=== PATIENT | female | born 1985 | race Caucasian/White ===

== ENCOUNTER 2021-06-03 17:21 | Inpatient (IN) | payer BC ==
[2021-06-03 18:16] VITALS: BMI 33.7
[2021-06-03 20:14] LABS: SARS-CoV-2 NAA Rapid Test Not Detected (NotDetected)
[2021-06-03] MEDS ORDERED: Carboprost 250 MCG/ML AMP IM PRN (20:26)
[2021-06-03] MEDS ORDERED: hydrALAZINE 20 MG/ML VIAL SLOW IVP PRN (20:26)
[2021-06-03] MEDS ORDERED: Promethazine HCl 25 MG/ML VIAL IM PRN ×2 (20:26→21:42)
[2021-06-03] MEDS ORDERED: guaiFENesin/Dextromethorphan 10 ML UDCUP PO PRN (20:26)
[2021-06-03] MEDS ORDERED: Ibuprofen 800 MG TAB PO PRN (20:26)
[2021-06-03] MEDS ORDERED: Pseudoephedrine HCl 30 MG TAB PO PRN (20:26)
[2021-06-03] MEDS ORDERED: Lidocaine 1% (PF) 30 ML VIAL SC PRN (20:26)
[2021-06-03] MEDS ORDERED: Misoprostol 200 MCG TAB PR PRN (20:26)
[2021-06-03] MEDS ORDERED: Methylergonovine 0.2 MG/ML VIAL IM PRN (20:26)
[2021-06-03] MEDS ORDERED: Ondansetron PF 4 MG/2 ML Vial IVP PRN ×2 (20:26→21:42)
[2021-06-03] MEDS ORDERED: Diphenoxylate HCl/Atropine Tablet PO PRN ×2 (20:26)
[2021-06-03] MEDS ORDERED: Lactated Ringer's 1,000 ML IV SCH (20:30)
[2021-06-03] MEDS ORDERED: NS w/ Oxytocin 30 units 500 ML IVPB SCH (20:30)
[2021-06-03] MEDS ORDERED: NS w/ Oxytocin 30 units 500 ML IV SCH ×2 (20:30)
[2021-06-03] MEDS ORDERED: Penicillin G Potassium 5 MILL.UNITS in Sodium Chloride 0.9% 100 ML IVPB SCH (20:30)
[2021-06-03] MEDS ORDERED: Fentanyl 2 mcg/Bup 0.1% Cadd 100 ML ONE (21:08)
[2021-06-03 21:12] LABS: Hemoglobin 10.1 g/dL (12.0-15.5); Mean Corpuscular HGB CONC 33.7 g/dL (32.0-36.0); Mean Corpuscular Hemoglobin 30.4 pg (27.0-33.0); Mean Corpuscular Volume 90.4 fl (81.6-98.3); Platelet Count 265 10x3/uL (150-450); RBC Distribution Width 13.8 % (11.5-14.5); Red Blood Cell (RBC) Count 3.32 10x6/uL (3.90-5.03); White Blood Cell (WBC) Count 7.8 10x3/uL (3.5-10.5)
[2021-06-03] MEDS ORDERED: Acetaminophen 500 MG TAB PO SCH (21:30)
[2021-06-03] MEDS ORDERED: Hydrocerin (Eucerin) Cream 120 gm Jar TOP PRN (21:42)
[2021-06-03] MEDS ORDERED: Lactated Ringer's 500 ML IV PRN (21:42)
[2021-06-03] MEDS ORDERED: ePHEDrine Sulfate 50 MG/10 ML VIAL SLOW IVP PRN (21:42)
[2021-06-03] MEDS ORDERED: Acetaminophen 325 MG TAB PO PRN (21:42)
[2021-06-03] MEDS ORDERED: Naloxone HCl 0.4 mg/ml Vial IVP PRN ×2 (21:42)
[2021-06-03] MEDS ORDERED: diphenhydrAMINE 50 MG/ML VIAL IVP PRN (21:42)
[2021-06-03] MEDS ORDERED: Fentanyl 2 mcg/Bupivacaine 0.1% Cassette 100 ML EPIDURAL SCH (21:45)
[2021-06-03] MEDS ORDERED: Communication Order-Pharmacy FS SCH (21:45)
[2021-06-03 21:48] LABS: HIV (1/2) Antibody/Antigen Non-Reactive (NonReactive); HIV 1/2 INDEX 0.06 S/CO (<1.00); Hep B Surf Ag Non-Reactive S/CO (NonReactive)
[2021-06-03 21:51] LABS: HBSAg Index 0.23 S/CO (0-0.99); Syphilis Antibody Nonreactive (Nonreactive); Syphilis Antibody Index 0.03 S/CO (<1.00 Non-Reactive)
[2021-06-03] MEDS: Guaifenesin DM 100-10/5 ML UDCUP PO PRN (21:54)
[2021-06-03] MEDS ORDERED: PHENYLEPHRINE-NS 100 MCG/ML 10 ML SYRINGE ONE (22:27)
[2021-06-03] MEDS ORDERED: Phenylephrine 10 MG/ML VIAL ONE (23:05)
[2021-06-04] MEDS: Penicillin G 2.5 MILL.units 2.5 MILL.UNITS in Premix Bag 1 BAG IVPB SCH ×4 (01:14→13:14)
[2021-06-04] MEDS ORDERED: Preparation H Ointment 28 GM TUBE PR PRN (10:39)
[2021-06-04] MEDS ORDERED: Milk Of Magnesia 30 ML UDCUP PO PRN (10:39)
[2021-06-04] MEDS ORDERED: Misoprostol 200 MCG TAB VAG PRN (10:39)
[2021-06-04] MEDS ORDERED: hydrALAZINE 20 MG/ML VIAL SLOW IVP PRN (10:39)
[2021-06-04] MEDS ORDERED: Boostrix 0.5 ML (Tdap) VIAL IM ONE (10:39)
[2021-06-04] MEDS ORDERED: Benzocaine-Menthol 82.5 ML CAN TOP PRN (10:39)
[2021-06-04] MEDS ORDERED: Bisacodyl 10 MG SUPP PR PRN (10:39)
[2021-06-04] MEDS ORDERED: Lanolin Ointment 7 GM TUBE TOP PRN (10:39)
[2021-06-04] MEDS ORDERED: Zolpidem Tartrate 5 MG TAB PO PRN (10:39)
[2021-06-04] MEDS ORDERED: Ondansetron PF 4 MG/2 ML Vial IVP PRN (10:39)
[2021-06-04] MEDS ORDERED: diphenhydrAMINE 25 MG CAP PO PRN (10:39)
[2021-06-04] MEDS ORDERED: NS w/ Oxytocin 30 units 500 ML IV SCH (10:45)
[2021-06-04] MEDS: Ibuprofen 800 MG TAB PO SCH ×2 (14:14→20:15)
[2021-06-04] MEDS: Guaifenesin DM 100-10/5 ML UDCUP PO PRN (14:15)
[2021-06-04] MEDS: Acetaminophen/Codeine 30-300mg Tablet PO PRN ×2 (14:47→20:14)
[2021-06-04] MEDS: Ferrous Sulfate 325 MG TAB PO SCH (16:05)
[2021-06-04] MEDS: Docusate Calcium (SURFAK) 240 MG CAP PO SCH (20:15)
[2021-06-05] MEDS: Acetaminophen/Codeine 30-300mg Tablet PO PRN ×3 (01:36→18:21)
[2021-06-05 05:31] LABS: Hemoglobin 8.5 g/dL (12.0-15.5)
[2021-06-05] MEDS: Ibuprofen 800 MG TAB PO SCH ×3 (06:43→21:38)
[2021-06-05] MEDS: Docusate Calcium (SURFAK) 240 MG CAP PO SCH ×2 (08:35→21:39)
[2021-06-05] MEDS: Ferrous Sulfate 325 MG TAB PO SCH ×2 (08:35→18:21)
[2021-06-05] MEDS: Prenatal Vitamin 1 TAB PO SCH (08:35)
[2021-06-05] MEDS ORDERED: Pseudoephedrine HCl 30 MG TAB PO PRN (09:17)
[2021-06-05] MEDS: Guaifenesin DM 100-10/5 ML UDCUP PO PRN (21:38)
[2021-06-06] MEDS: Acetaminophen/Codeine 30-300mg Tablet PO PRN (05:41)
[2021-06-06] MEDS: Ibuprofen 800 MG TAB PO SCH ×2 (05:42→13:45)
[2021-06-06 05:45] VITALS: TEMP 98.1
[2021-06-06 07:51] VITALS: BP 114/75
[2021-06-06] MEDS: Ferrous Sulfate 325 MG TAB PO SCH (08:59)
[2021-06-06] MEDS: Prenatal Vitamin 1 TAB PO SCH (08:59)
[2021-06-06] MEDS: Docusate Calcium (SURFAK) 240 MG CAP PO SCH (08:59)
== END 2021-06-06 14:05 | disposition home or self-care (01) | DRG 807 ==
LOC: CSHLD/OP 17:21 → CSHLD 20:17 → CSHPP 06-04 13:00
PROVIDERS: ADMIT Obstetrics & Gynecology; ATTEND Obstetrics & Gynecology
PROC: 10E0XZZ Delivery of Products of Conception, External Approach (ICD-10-PCS; principal; 2021-06-03)
DX: O99.824 Streptococcus B carrier state complicating childbirth (principal); Z37.0 Single live birth; Z3A.38 38 weeks gestation of pregnancy; Z20.822 Contact with and (suspected) exposure to COVID-19
CPT/HCPCS: 36415; 51702; 85014; 85018; 85027; 86780; 86850; 86900; 86901; 87340; 87389; 99285; J2370; J2405; J2540; J2590; J3490; U0002